=== PATIENT | female | born 2000 | race Caucasian/White ===

== ENCOUNTER 2021-04-30 19:15 | Emergency (ER) | payer SELFPAY ==
--- NOTE | 2021-04-30 19:42 | EDM.PDOC ---
ED HPI GENERAL MEDICAL PROBLEM - General Chief Complaint: General Stated Complaint: OUT OF MEDICATION, WITHDRAWLS Time Seen by Provider: 04/30/21 19:34 - History of Present Illness INITIAL COMMENTS - FREE TEXT/NARRATIVE: CHIEF COMPLAINT(S): I need my medication refill HISTORY OF PRESENT ILLNESS: This is a 20-year-old and with a past medical history of depression anxiety on duloxetine who comes to the emergency department with a chief complaint of I need my medication refill. The patient states that she is from [place] and she has been trying to contact her primary care physician throughout the week to get a refill on her prescription. She states that she was unable to get a hold of her. She states that the pharmacy did send out a request however they have not received that request back. She states that for the last 4 days she has been experiencing withdrawals from Cymbalta. She states that she has had some nausea some headache, some fogginess of her brain, mood swings, shortness of breath which she describes like panic attacks. She denies any syncope or any other symptoms. REVIEW OF SYSTEMS: Constitutional: Denies fever, chills. Eyes: Denies eye pain Ears, Nose, Mouth, & Throat: Denies earache Cardiovascular: Denies chest pain Respiratory: Positive for shortness of breath Gastrointestinal: Positive for nausea. Denies abdominal pain, vomiting, diarrhea, hematochezia, melena continue to assess genitourinary: Denies hematuria, dysuria skin:Denies a rash MSK: Denies joint pain Neurological: Positive for headache. Denies blurred vision, numbness, tingling, weakness psychiatric: Positive for depression anxiety PAST MEDICAL HISTORY: As per history of present illness and as reviewed below otherwise noncontributory. SURGICAL HISTORY: As per history of present illness and as reviewed below otherwise noncontributory. SOCIAL HISTORY: As per history of present illness and as reviewed below otherwise noncontributory. FAMILY HISTORY: As per history of present illness and as reviewed below otherwise noncontributory. EXAMINATION OF ORGAN SYSTEMS/BODY AREAS: Constitutional: Blood pressure is 120/87, heart rate 84, respiratory 20 with an oxygen saturation 100% on room air. Temperature 35.8 General: Anxious appearing woman who is otherwise in no acute distress Psychiatric: Appears anxious but is cooperative. Denies suicidal ideation, homicidal ideation. Eyes: No scleral icterus or conjunctival erythema pupils are equal round and reactive to light. Extraocular movements intact. No nystagmus noted. ENMT: Moist mucous membranes. No pharyngeal erythema Cardiovascular: Regular, rate, and rhythm. No gallops, murmurs, or rubs. Bilateral upper extremity pulses symmetric and intact. No peripheral edema. No JVD. Respiratory: Lungs clear to auscultation bilaterally. No wheezes, rales, or rhonchi. Gastrointestinal: Soft, non-tender, non-distended. Normoactive bowel sounds Genitourinary: No suprapubic tenderness Musculoskeletal: Normal range of motion. Skin: No lesions or abrasions. Neurological: AOx4. CN grossly intact. Stregth 5/5 in bilateral upper and lower extremity. Sensation is intact bilaterally in upper and lower extremity. Gait appears normal. MEDICAL DECISION MAKING AND COURSE IN THE ED WITH INTERPRETATION/REVIEW OF DIAGNOSTIC STUDIES: This is a 20-year-old woman with a past medical history of depression and anxiety who is on duloxetine who comes to the emergency department with need for medication refill after 4 days without her medications with signs of withdrawal. At this time I did discuss with her that I would provide her with 1 month of her prescription however she needs to contact her primary care physician to get further refills. At this time I do not believe any further work-up or injury imaging is indicated. She was given strict return precautions. The patient was amenable discharge at this time and had no further questions DISPOSITION: The patient was discharged home in stable condition. The patient will follow up with her primary care physician for repeat refills CONDITION: Fair PROCEDURES: None FINAL IMPRESSION(S)/DIAGNOSES: 1. Acute duloxetine withdraw Ray Fernandez M.D. - Related Data Allergies Allergy/AdvReac Type Severity Reaction Status Date / Time No Known Allergies Allergy Verified 04/30/21 19:29 Home Meds: Home Meds DULoxetine HCl [Cymbalta] 60 mg PO DAILY #30 capsule. 04/30/21 [Rx] Past Medical History Psychiatric History: Reports: Anxiety Social & Family History - Tobacco Use Tobacco Use Status *Q: Never Tobacco User - Recreational Drug Use Recreational Drug Use: No ED ROS GENERAL - Review of Systems Review Of Systems: See Below ED EXAM, GENERAL - Physical Exam Exam: See Below Course - Vital Signs Last Recorded V/S: Last Vital Signs Temp 35.8 C L 04/30/21 19:24 Pulse 84 04/30/21 19:24 Resp 20 04/30/21 19:24 BP 120/87 04/30/21 19:24 Pulse Ox 100 04/30/21 19:24 Departure - Departure Time of Disposition: 19:39 Disposition: Home, Self-Care 01 Condition: Fair Clinical Impression: Medication withdrawal - Discharge Information *PRESCRIPTION DRUG MONITORING PROGRAM REVIEWED*: No *COPY OF PRESCRIPTION DRUG MONITORING REPORT IN PATIENT DEVANTE: No Prescriptions: DULoxetine HCl [Cymbalta] 60 mg PO DAILY #30 capsule. Instructions: Duloxetine delayed-release capsules Referrals: PCP,Not In Area [Primary Care Provider] - Forms: ED Department Discharge Additional Instructions: You were evaluated today on an emergent basis. At this time I did provide you with a prescription for 1 month of your antidepressant. I do recommend that you contact your primary care physician for further refills. Given that you are here throughout the summer I would contact her to get at least 1-2 extra refills until you go back to [place]. You're welcome to return to the emergency department for any new or worsening symptoms. The patient is informed of any results of their evaluation and diagnostic workup and all questions are answered. They are given discharge instructions and return precautions. The patient is stable for discharge. The patient states they understand and agree with the plan and that they will return if their symptoms get worse or if they have any new concerns. The following information is given to patients seen in the emergency department who are being discharged to home. This information is to outline your options for follow-up care. We provide all patients seen in our emergency department with a follow-up referral. The need for follow-up, as well as the timing and circumstances, are variable depending upon the specifics of your emergency department visit. If you don't have a primary care physician on staff, we will provide you with a referral. We always advise you to contact your personal physician following an emergency department visit to inform them of the circumstance of the visit and for follow-up with them and/or the need for any referrals to a consulting specialist. The emergency department will also refer you to a specialist when appropriate. This referral assures that you have the opportunity for follow-up care with a specialist. All of these measure are taken in an effort to provide you with optimal care, which includes your follow-up. Under all circumstances we always encourage you to contact your private physician who remains a resource for coordinating your care. When calling for follow-up care, please make the office aware that this follow-up is from your recent emergency room visit. If for any reason you are refused follow-up, please contact the [facility] Emergency Department at and asked to speak to the emergency department charge nurse. Sepsis Event Note (ED) - Evaluation Sepsis Screening Result: No Definite Risk - Focused Exam Vital Signs: Vital Signs Temp Pulse Resp BP Pulse Ox 04/30/21 19:24 35.8 C L 84 20 120/87 100
== END 2021-04-30 19:49 | disposition home or self-care (01) ==
LOC: MW.ED 19:15
DX: F41.9 Anxiety disorder, unspecified (principal); Z76.0 Encounter for issue of repeat prescription
CPT/HCPCS: 99283